=== PATIENT | female | born 1965 | race Caucasian/White ===

== ENCOUNTER 2020-01-25 07:50 | Inpatient (IN) | payer BC, OTHER ==
[2020-01-19 15:40] LABS: BASOPHILS % (AUTO) 0.8 % (0-1); EOSINOPHILS # (AUTO) 0.1 X10'3 (0-0.9); EOSINOPHILS % (AUTO) 1.3 % (0-6); LYMPHOCYTES # (AUTO) 1.9 X10'3 (1.1-4.8); LYMPHOCYTES % (AUTO) 29.5 % (21-51); MEAN CORPUSCULAR HEMOGLOBIN 30.7 PG (27.0-31.0); MEAN CORPUSCULAR HGB CONC 33.7 g/dL (33.0-36.5); MEAN CORPUSCULAR VOLUME 91.1 FL (78-98); MEAN PLATELET VOLUME 8.9 FL (7.4-10.4); MONOCYTES # (AUTO) 0.4 X10'3 (0-0.9); MONOCYTES % (AUTO) 6.5 % (2-12); NEUTROPHILS % (AUTO) 61.9 % (42-75); PRE OP HEMATOCRIT 41.9 % (35.0-45.0); PRE OP HEMOGLOBIN 14.1 g/dL (12.0-16.0); PRE OP PLATELET COUNT 181 X10'3 (140-440); RED CELL DISTRIBUTION WIDTH 14.3 % (11.5-14.5)
[2020-01-19 15:49] LABS: CLARITY,URINE SLIGHTLY CLOUDY (Clear); GLUCOSE, URINE NEGATIVE (Neg); KETONES,URINE TRACE mg/dl (Neg); LEUKOCYTE ESTERASE ,URINE NEGATIVE (Neg); NITRITES, URINE NEGATIVE (Neg); OCCULT BLOOD,URINE NEGATIVE (Neg); PROTEIN,URINE NEGATIVE (Neg)
[2020-01-19 15:55] LABS: PRE OP PROTIME 20.6 SECONDS (9.0-12.0)
[2020-01-19 15:56] LABS: ALBUMIN 3.6 G/DL (3.4-5.0); ALBUMIN/GLOBULIN RATIO 1.1 (1.1-1.5); ALKALINE PHOSPHATASE 80 IU/L (46-116); BLOOD UREA NITROGEN 18 MG/DL (7-18); BUN/CREATININE RATIO 12.9 (6.6-38.0); CALCIUM 9.1 MG/DL (8.5-10.1); CHLORIDE 105 MMOL/L (99-107); CREATININE 1.39 MG/DL (0.40-0.90); PRE OP ALT 44 U/L (30-65); PRE OP ANION GAP 5 (8-16); PRE OP AST 29 U/L (10-37); PRE OP BILIRUB, TOTAL 0.5 MG/DL (0.0-1.0); PRE OP GLUCOSE 89 MG/DL (70-104); PRE OP POTASSIUM 3.7 MMOL/L (3.4-5.1); PRE OP SODIUM 139 MMOL/L (135-145); TOTAL CARBON DIOXIDE 28.8 MMOL/L (24-32); TOTAL PROTEIN 6.8 G/DL (6.4-8.2); eGFR 40 ML/MIN
[2020-01-19 16:00] LABS: UA COLLECTION TYPE CLN CATCH MIDSTREAM
[2020-01-19 16:01] LABS: COLOR,URINE DARK YELLOW (Yellow)
[2020-01-19 16:02] LABS: PRE OP INR 2.1 INR
[2020-01-19 16:14] LABS: SQUAMOUS EPITHELIAL CELL,UR MODERATE /LPF (FEW)
[2020-01-19 16:15] LABS: BACTERIA,URINE FEW /HPF (Neg); RBC,URINE 0-2 /HPF (0-2); WBC,URINE 0-4 /HPF (0-4)
[2020-01-25] VITALS (28 sets, daily range): BP systolic 105–168; BP diastolic 56–85
[~2020-01-25] VITALS: Ht 154.9 cm; Wt 63.8 kg
[~2020-01-25 07:50] MED LIST: AMLO2.5T2 PO; ATOR40TA PO; BENA20TA82 PO; BUPR1FIL17 SL; TRAZ-256 PO; WARF-65 PO; cefazolin/dext.iso 2gm/50ml 50 ML IV ONE; famotidine 20mg tablet PO ONE; nitroPRUSSIDE in NS 100 ML IV PRN; phenylephrine inj 50 MG in normal saline 250ml IV soln 245 ML IV PRN; ringers solution, lacted 1,000 ML IV SCH
[2020-01-25] MEDS ORDERED: LIDOcaine 1% (10mg/ml) 2ml vial ONE ×2 (08:14→11:13)
--- NOTE | 2020-01-25 08:30 | NUR ---
PT ANSWERED NO TO ALL COVID SCREENING TESTS. NEGATIVE LAB RESULT IN CHART.
[2020-01-25 08:58] LABS: PARTIAL THROMBOPLASTIN TIME 31 SECONDS (22-32)
[2020-01-25] MEDS ORDERED: NORMAL SALINE IV ONE (09:05)
[2020-01-25] MEDS ORDERED: PHENYLEPHRINE IV ONE (09:05)
[2020-01-25] MEDS ORDERED: ringers solution, lacted 1,000 ML IV SCH (09:39)
[2020-01-25] MEDS ORDERED: proCHLORperazine 10 MG/2 ml inj IV PRN (09:40)
[2020-01-25] MEDS ORDERED: meperidine/PF 25mg/ml syringe IV PRN ×2 (09:40)
[2020-01-25] MEDS ORDERED: ondansetron/PF 4mg/2ml inj IV PRN (09:40)
[2020-01-25] MEDS ORDERED: morphine 2 MG/ML inj. syringe IV PRN (09:40)
[2020-01-25] MEDS ORDERED: morphine 4 MG/ML inj SYRINge IV PRN (09:40)
[2020-01-25] MEDS ORDERED: diazepam 5mg tablet PO ONE (10:00)
[2020-01-25] MEDS ORDERED: heparin 10,000 units/1 ML INJ ONE (11:14)
[2020-01-25] MEDS ORDERED: LIDOcaine 1% 30ml preserv. free vial ONE (11:16)
[2020-01-25] MEDS ORDERED: sevoflurane 250ml liquid IH ONE (11:36)
[2020-01-25] MEDS ORDERED: fentaNYL/PF 50MCG/1 ML 2ML syringe ONE (11:37)
[2020-01-25] MEDS ORDERED: midazolam 2 mg/2 ml injection ONE (11:38)
[2020-01-25] MEDS ORDERED: propofol inj 20 ML IV ONE (11:40)
[2020-01-25] MEDS ORDERED: rocuronium 10mg/ml inj IV ONE (11:42)
[2020-01-25] MEDS ORDERED: labetalol 20mg/4ml (5mg/ml) syringe IV ONE (13:18)
[2020-01-25] MEDS ORDERED: neostigmine methylsulfate 1 MG/ML 10ml vial ONE (13:43)
[2020-01-25] MEDS ORDERED: glycopyrrolate 0.2mg/ml inj ONE (13:44)
--- NOTE | 2020-01-25 13:48 | NUR ---
Received from OR via BED, accompanied by Anesthesiologist DR JULES and report given by Anesthesiologist. PT DROWSY, LEFT NECK W/SMALL ISLAND DRSG W/ANGELES TO BULB SUCTION W/SANGUINOUS DRAINAGE, VSS, PT ON 1 MCG/KG/MIN OF NIPRIDE TO MAINTAIN SBP LESS THAN 160. Addendum: 01/25/20 at 1430 by Tori Katz RN Amended: Links added. Addendum: 01/25/20 at 1432 by Tori Katz RN LATE ENTRY - PT NEURO CHECKS WNL, PT HAS EQUAL MEDIA/INSTRUCTIONAL DESIGNER/PUSH-PULL, SMILE, EYES AND TONGUE SYMMETRICAL.
[2020-01-25] MEDS: meperidine/PF 25mg/ml syringe IV PRN ×4 (13:57→15:37)
[2020-01-25] MEDS ORDERED: HYDROcodone/acetaminophen 5mg/325mg tablet PO PRN (14:40)
--- NOTE | 2020-01-25 15:48 | NUR ---
Report called to receiving nurse. Transferred via BED ON , 1 BAG OF PERSONAL Belongings SENT W/PT TO ROOM 2012, RECEIVING RN AT BEDSIDE. DR [place] UPDATED REGARDING ANGELES OUTPUT AND SMALL OOZING AT INSERTION SITE OF ANGELES, NO HEMATOMA OR SWELLING NOTED, NEURO CHECKS REMAIN UNCHANGED. Special Issues communicated to receiving nurse. YES. Addendum: 01/25/20 at 1559 by Tori Katz RN Amended: Links added.
[2020-01-25] MEDS ORDERED: morphine/NS 5 mg/ml CADD 50 ML IV SCH (15:56)
[2020-01-25] MEDS ORDERED: normal saline 1000ml 1,000 ML IV SCH (15:56)
[2020-01-25] MEDS ORDERED: naloxone 0.4 mg/ml inj IV PRN (16:00)
[2020-01-25] MEDS ORDERED: CADD PCA waste documentation MC PRN (16:00)
[2020-01-25] MEDS: HYDROmorphone/NS 1 mg/ml CADD 50 ML IV SCH ×5 (17:00→23:00)
[2020-01-25] MEDS: potassium CL 20mEq in D5-1/2NS 1,000 ML IV SCH (17:20)
--- NOTE | 2020-01-25 18:30 | NUR ---
Patient in room CICU 2011. I have received report from Carlee YANG and had the opportunity to ask questions and assume patient care.
--- NOTE | 2020-01-25 19:36 | NUR ---
PT c/o pain to LT neck at incision site that is not being relieved by current settings on Dilaudid CADD. PT was given a 0.2mg clinician Bolus per CADD order protocol as well as increasing rate to 0.3mg demand dose with the same lock out interval of 10 mins. PT is now sleeping and resting comfortably. VSS.
[2020-01-25] MEDS ORDERED: traZODone 50mg tablet PO SCH (21:00)
[2020-01-26] VITALS (10 sets, daily range): BP systolic 98–168; BP diastolic 52–101
[2020-01-26] MEDS: potassium CL 20mEq in D5-1/2NS 1,000 ML IV SCH ×2 (00:59→07:47)
[2020-01-26] MEDS: HYDROmorphone/NS 1 mg/ml CADD 50 ML IV SCH ×5 (01:00→09:00)
--- NOTE | 2020-01-26 03:00 | NUR ---
PT has been resting and sleeping off and all all shift with no s/s of distress noted at this time. VSS. Will continue to monitor.
--- NOTE | 2020-01-26 06:42 | NUR ---
Problems reprioritized. Patient report given, questions answered & plan of care reviewed with Davina YANG.
--- NOTE | 2020-01-26 10:36 | NUR ---
Patient stable for discharge per Dr. Best. Patient given discharge instructions, all questions and concerns addressed. This nurse called and spoke with MA at MD office, she states [place] 10/325mg #20 sent to [facility]. ANGELES drain removed from neck, no hematoma or bleeding noted. Art line removed from right wrist, no hematoma or bleeding noted. Patient signed all paperwork. Patient ambulated ad hunter out of unit accompanied by staff.
== END 2020-01-26 13:04 | disposition home or self-care (01) | DRG 39 ==
LOC: PAS IN 07:50 → EDSTATUS 09:30 → CICU 2S 14:37
PROVIDERS: ADMIT Surgery; ATTEND Surgery
PROC: 03CL0ZZ Extirpation of Matter from Left Internal Carotid Artery, Open Approach (ICD-10-PCS; principal; 2020-01-25 11:36)
DX: I65.22 Occlusion and stenosis of left carotid artery (principal); E78.5 Hyperlipidemia, unspecified; F17.210 Nicotine dependence, cigarettes, uncomplicated; H54.61 Unqualified visual loss, right eye, normal vision left eye; I35.9 Nonrheumatic aortic valve disorder, unspecified; I73.00 Raynaud's syndrome without gangrene; Z86.73 Personal history of transient ischemic attack (TIA), and cerebral infarction without residual deficits; Z95.2 Presence of prosthetic heart valve; Z20.828 Contact with and (suspected) exposure to other viral communicable diseases
CPT/HCPCS: Z7506; Z7508; 36415; 80053; 81001; 82948; 85025; 85610; 85730; 86885; 86900; 86901; 87081; 87635; 95813; 95816; A4618; A6258; A7000; G0378; J1170; J1644; J2001; J2175; J2250; J2370; J2704; J2710; J3010; J3480; J3490; J7040; J7050; J7120

== ENCOUNTER 2020-11-03 09:07 | Emergency (ER) | payer OTHER ==
[~2020-11-03] VITALS: Ht 154.9 cm; Wt 61.4 kg
[~2020-11-03 09:07] MED LIST changes: -cefazolin/dext.iso 2gm/50ml 50 ML IV ONE; -famotidine 20mg tablet PO ONE; -nitroPRUSSIDE in NS 100 ML IV PRN; -phenylephrine inj 50 MG in normal saline 250ml IV soln 245 ML IV PRN; -ringers solution, lacted 1,000 ML IV SCH
[2020-11-03] MEDS ORDERED: ondansetron 4mg rapidly disintigrating tab PO ONE (09:45)
[2020-11-03] MEDS ORDERED: HYDROcodone/acetaminophen 10/325mg tab PO ONE (09:45)
[2020-11-03 10:09] LABS: BASOPHILS % (AUTO) 0.3 % (0-1); EOSINOPHILS % (AUTO) 0.4 % (0-6); HEMATOCRIT 36.4 % (35.0-45.0); HEMOGLOBIN 12.5 g/dl (12.0-16.0); LYMPHOCYTES # (AUTO) 1.1 X10'3 (1.1-4.8); MEAN CORPUSCULAR HEMOGLOBIN 32.4 PG (27.0-31.0); MEAN CORPUSCULAR HGB CONC 34.2 g/dL (33.0-36.5); MEAN CORPUSCULAR VOLUME 94.6 FL (78-98); MEAN PLATELET VOLUME 9.1 FL (7.4-10.4); MONOCYTES # (AUTO) 0.5 X10'3 (0-0.9); MONOCYTES % (AUTO) 7.1 % (2-12); NEUTROPHILS # (AUTO) 5.5 X10'3 (1.8-7.7); NEUTROPHILS % (AUTO) 77.2 % (42-75); PLATELET COUNT 167 X10'3 (140-440); RED BLOOD COUNT 3.85 X10'6 (4.20-5.60); WHITE BLOOD COUNT 7.1 X10'3 (4.5-11.0)
[2020-11-03 10:19] LABS: ALANINE AMINOTRANSFERASE 55 U/L (12-78); ALBUMIN 3.6 G/DL (3.4-5.0); ALBUMIN/GLOBULIN RATIO 1.1 (1.1-1.5); ALKALINE PHOSPHATASE 132 IU/L (46-116); ANION GAP 9 (8-16); ASPARTATE AMINO TRANSFERASE 37 U/L (10-37); BILIRUBIN,TOTAL 0.9 MG/DL (0.1-1.0); BLOOD UREA NITROGEN 14 MG/DL (7-18); CHLORIDE 104 MMOL/L (99-107); CREATININE 1.08 MG/DL (0.40-0.90); POTASSIUM 4.2 MMOL/L (3.5-5.1); SODIUM 138 MMOL/L (135-145); TOTAL CARBON DIOXIDE 25.3 MMOL/L (24-32); TOTAL PROTEIN 6.9 G/DL (6.4-8.2); eGFR 53 ML/MIN
[2020-11-03 10:25] LABS: GLUCOSE 111 MG/DL (70-104)
[2020-11-03] MEDS ORDERED: iohexol 350MG/ML 100ml bottle IV ONE (10:54)
[2020-11-03 11:17] VITALS: BP 106/62
[2020-11-03 11:17] LABS: PARTIAL THROMBOPLASTIN TIME 54 SECONDS (22-32)
== END 2020-11-03 12:53 | disposition home or self-care (01) ==
LOC: ER 09:07
DX: S80.12XA Contusion of left lower leg, initial encounter (principal); M25.562 Pain in left knee; D68.9 Coagulation defect, unspecified; Z79.01 Long term (current) use of anticoagulants; Z98.890 Other specified postprocedural states; W55.12XA Struck by horse, initial encounter; Y93.89 Activity, other specified; Y92.89 Other specified places as the place of occurrence of the external cause; Y99.8 Other external cause status
CPT/HCPCS: 29505; 36415; 75635; 80053; 85025; 85610; 85730; 99285; Q9967

== ENCOUNTER 2020-11-27 09:27 | Emergency (ER) | payer OTHER ==
[~2020-11-27] VITALS: Ht 154.9 cm; Wt 61.0 kg
[2020-11-27 09:42] VITALS: BP 97/53
[2020-11-27] MEDS ORDERED: HYDROcodone/acetaminophen 10/325mg tab PO ONE (11:50)
[2020-11-27] MEDS ORDERED: HYDR-3972 PO (14:16)
== END 2020-11-27 14:28 | disposition home or self-care (01) ==
LOC: ER 09:28
DX: S80.12XA Contusion of left lower leg, initial encounter (principal); S70.11XA Contusion of right thigh, initial encounter; Z79.899 Other long term (current) drug therapy; S70.12XA Contusion of left thigh, initial encounter; D68.32 Hemorrhagic disorder due to extrinsic circulating anticoagulants; Z79.01 Long term (current) use of anticoagulants; W55.12XA Struck by horse, initial encounter; Y93.89 Activity, other specified; Y92.89 Other specified places as the place of occurrence of the external cause; Y99.8 Other external cause status
CPT/HCPCS: 36415; 85610; 99283